=== PATIENT | female | born 1975 | race African-American/Black ===

== ENCOUNTER → 2016-11-05 | Outpatient (CLI) | payer BC ==
[~2016-11-05] MED LIST: ALPR0.254 PO; BUPR300T49 PO; CHOL200024 PO; IBUP-1221 PO; LACT1CAP40 PO; TRAZ50TA18 PO
[2016-11-05 15:30] LABS: HEMATOCRIT 41.3 % (34.6-47.8); HEMOGLOBIN 13.5 g/dL (11.7-16.4); WHITE BLOOD COUNT 3.7 x10^3/uL (3.4-10)
[2016-11-05 16:08] LABS: DIFF TOTAL CELLS COUNTED 100 CELL DIFF
[2016-11-05 17:20] LABS: VERIFY COUNTS? YES
[2016-11-05 17:21] LABS: TARGET CELLS 2+
[2016-11-05 17:24] LABS: OVALOCYTES 1+
== END | disposition home or self-care (01) ==
LOC: STAR 14:11 → EDBD 14:30
PROVIDERS: ATTEND Obstetrics & Gynecology Female Pelvic Medicine and Reconstructive Surgery
DX: Z01.818 Encounter for other preprocedural examination (principal); N85.2 Hypertrophy of uterus; D25.9 Leiomyoma of uterus, unspecified; N92.0 Excessive and frequent menstruation with regular cycle
CPT/HCPCS: 36415; 84703; 85025

== ENCOUNTER 2016-11-18 08:15 | Day surgery (SDC) | payer BC ==
[~2016-11-18] VITALS: Ht 167.6 cm; Wt 70.0 kg
[~2016-11-18 08:15] MED LIST changes: +BUPIVACAINE/PF 0.25% ONE; +FLUORESCEIN SODIUM 500 MG/5 ML ONE
[2016-11-18] MEDS ORDERED: DEXAMETHASONE 4 MG/ML, 1ML ONE (08:49)
[2016-11-18] MEDS ORDERED: CEFAZOLIN 1,000 MG ONE (08:49)
[2016-11-18] MEDS ORDERED: ONDANSETRON 2MG/ML, 2ML ONE (08:49)
[2016-11-18] MEDS ORDERED: PROPOFOL 10 MG/ML, 20ML ONE (08:49)
[2016-11-18] MEDS ORDERED: SUCCINYLCHOLINE 20 MG/ML, 10ML ONE (08:49)
[2016-11-18] MEDS ORDERED: ROCURONIUM 10 MG/ML ONE (08:49)
[2016-11-18] MEDS ORDERED: NEOSTIGMINE 1 MG/ML, 10ML ONE (08:49)
[2016-11-18] MEDS ORDERED: GLYCOPYRROLATE 0.2MG/1ML, 5ML ONE (08:49)
[2016-11-18] MEDS ORDERED: FENTANYL PF 100 MCG/2ML ONE ×3 (08:49→13:10)
[2016-11-18] MEDS ORDERED: MIDAZOLAM 1 MG/ML, 2ML ONE (08:49)
[2016-11-18] MEDS ORDERED: LIDOCAINE-MPF 2% ,5ML ONE ×2 (08:49→10:40)
[2016-11-18] MEDS ORDERED: LIDOCAINE GEL 2%, 5ML ONE (08:53)
[2016-11-18 09:14] LABS: HCG UR LOT HCG7030192
[2016-11-18] MEDS ORDERED: LACTATED RINGERS 1,000 ML IV SCH ×2 (09:19→12:59)
[2016-11-18 09:21] VITALS: BP 116/74
[2016-11-18 09:25] LABS: HCG UR OBC PASS
[2016-11-18] MEDS ORDERED: KETOROLAC 30 MG/1 ML ONE (10:35)
[2016-11-18] MEDS ORDERED: PROPOFOL 50 ML ONE ×2 (10:39→11:33)
[2016-11-18] MEDS ORDERED: EPINEPHRINE 1 MG/ML, 1ML INFIL ONE (11:04)
[2016-11-18] MEDS ORDERED: ONDANSETRON 2MG/ML, 2ML IVPush PRN ×2 (11:30→13:00)
[2016-11-18] MEDS ORDERED: MEPERIDINE/PF 25MG/0.5ML IVPush PRN (11:30)
[2016-11-18] MEDS ORDERED: HYDROmorphone 1 MG/ML, 1ML IV PRN (11:30)
[2016-11-18] MEDS ORDERED: LORazepam 2 MG/ML, 1ML IVPush PRN (11:30)
[2016-11-18] MEDS ORDERED: ALBUTEROL/IPRATROPIUM 2.5MG/0.5MG, 3 ML NPPB PRN (11:30)
[2016-11-18] MEDS ORDERED: PROMETHAZINE 25 MG/ML, 1ML IV PRN (11:30)
[2016-11-18] MEDS ORDERED: ACETAMINOPHEN 325 MG TABLET PO PRN (11:30)
[2016-11-18] MEDS ORDERED: hydrALAzine 20 MG/ML, 1ML IV PRN (11:30)
[2016-11-18] MEDS ORDERED: MIDAZOLAM 1 MG/ML, 2ML IV PRN (11:30)
[2016-11-18] MEDS ORDERED: LABETALOL 5MG/ML, 20ML IV PRN (11:30)
[2016-11-18] MEDS ORDERED: OXYcodone 5 MG/5 ML ORAL.SOL UDC PO PRN (11:30)
[2016-11-18] MEDS ORDERED: DIAZEPAM 5 MG/ML, 2ML IVPush PRN (11:30)
[2016-11-18] MEDS ORDERED: SCOPOLAMINE PATCH, 1MG PATCH.TD72 TD ONE (11:59)
[2016-11-18] MEDS ORDERED: METOCLOPRAMIDE 5 MG/ML, 2ML ONE (12:29)
[2016-11-18] MEDS ORDERED: OXYcodone/APAP 5/325MG TABLET PO PRN (13:00)
[2016-11-18] MEDS ORDERED: IBUPROFEN 600 MG TABLET PO PRN (13:00)
[2016-11-18] MEDS ORDERED: PROMETHAZINE 25 MG SUPP PR ONE (13:00)
[2016-11-18] MEDS ORDERED: ACETAMINOPHEN 650 MG/20.3 ML UDC ONE (13:10)
[2016-11-18] MEDS ORDERED: OXYcodone 5 MG/5 ML ORAL.SOL UDC ONE (13:10)
[2016-11-18] MEDS: FENTANYL PF 100 MCG/2ML IV PRN ×3 (13:20→14:06)
[2016-11-18] MEDS ORDERED: DIAZEPAM 5 MG TABLET PO ONE (16:00)
== END 2016-11-18 18:30 ==
LOC: EDBD → OUT 08:15
PROVIDERS: ATTEND Obstetrics & Gynecology Female Pelvic Medicine and Reconstructive Surgery
DX: D25.9 Leiomyoma of uterus, unspecified (principal); N94.6 Dysmenorrhea, unspecified; D64.9 Anemia, unspecified; J45.909 Unspecified asthma, uncomplicated; G43.909 Migraine, unspecified, not intractable, without status migrainosus; N83.8 Other noninflammatory disorders of ovary, fallopian tube and broad ligament; F32.9 Major depressive disorder, single episode, unspecified; F41.9 Anxiety disorder, unspecified; Z98.890 Other specified postprocedural states
CPT/HCPCS: 52000; 58552; 81025; 88307; J0171; J0330; J0690; J1100; J1885; J2250; J2405; J2704; J2710; J2765; J3010; J3490